=== PATIENT | female | born 1945 | race African-American/Black ===

== ENCOUNTER → 2018-04-13 | Outpatient (CLI) | payer MEDICARE, MEDICAID ==
[~2018-04-13] MED LIST: AMLO10TA4 PO; ATOR20TA PO; ENOX100D3 SQ; GABA100C PO; GLIP5TAB12; HYDR12.529 PO; INSNOV SUBCUT; INSU100C11 SQ; LANTUS; LISI10TA5 PO; LOSA25TA3 PO; METF500T; PROAIR; VITAMIN D; WARF5TAB76 PO; [UNRECOGNIZED DRUG - CODE]
== END | disposition home or self-care (01) ==
LOC: PVL 08:50
PROVIDERS: ATTEND Internal Medicine Nephrology
DX: I73.9 Peripheral vascular disease, unspecified (principal)
CPT/HCPCS: 93923

== ENCOUNTER 2021-11-06 10:20 | Emergency (ER) | payer MEDICARE, MEDICAID ==
[~2021-11-06] VITALS: Ht 167.6 cm; Wt 77.0 kg
[~2021-11-06 10:20] MED LIST changes: +LISI10TA26 PO; -LISI10TA5 PO
[2021-11-06 11:00] LABS: BASOPHILS % 1.2 % (0.0-2.0); EOSINOPHILS % 1.8 % (0.0-5.0); HEMATOCRIT. 37.1 % (36.0-48.0); HEMOGLOBIN. 11.8 g/dL (12.0-16.0); LYMPHOCYTES % 39.8 % (20.0-50.0); MEAN CORPUSCULAR VOLUME 78.6 fL (81.0-99.0); MEAN PLATELET VOLUME 9.1 fl (7.4-10.4); MONOCYTES % 12.1 % (2.0-8.0); NEUTROPHILS % 45.1 % (40.0-76.0); PLATELET 215 x1000/uL (130-400); RED BLOOD CELL COUNT 4.73 mill/uL (4.2-5.4); RED CELL DISTRIBUTION WIDTH 14.5 % (11.6-14.6)
[2021-11-06 11:06] LABS: CHLORIDE 99 mEq/L (98-107)
[2021-11-06 13:23] VITALS: BP 126/57
== END 2021-11-06 13:56 | disposition home or self-care (01) ==
LOC: ER 10:20
DX: E11.649 Type 2 diabetes mellitus with hypoglycemia without coma (principal); E78.00 Pure hypercholesterolemia, unspecified; I10 Essential (primary) hypertension; Z88.0 Allergy status to penicillin; Z79.4 Long term (current) use of insulin; Z79.899 Other long term (current) drug therapy
CPT/HCPCS: 36415; 80053; 82962; 85025; 93005; 99284